=== PATIENT | female | born 1970 | race Caucasian/White ===

== ENCOUNTER → 2020-01-27 11:05 | Outpatient (BNVA) | payer MEDICARE, MEDICAID, SELFPAY | PROVIDERS: Family Provider Nurse Practitioner Family; PCP Nurse Practitioner Family; Visit Provider Specialist | DX: G43.909 Migraine, unspecified, not intractable, without status migrainosus (principal); G62.9 Polyneuropathy, unspecified; M79.7 Fibromyalgia | CPT/HCPCS: 99214 ==

== ENCOUNTER → 2020-01-28 10:58 | Outpatient (BNVA) | payer MEDICARE, MEDICAID, SELFPAY | PROVIDERS: Family Provider Nurse Practitioner Family; PCP Nurse Practitioner Family; Visit Provider Nurse Practitioner Family | DX: D50.9 Iron deficiency anemia, unspecified (principal); R20.0 Anesthesia of skin; R20.2 Paresthesia of skin | CPT/HCPCS: 80053; 82728; 84443; 85025 ==

== ENCOUNTER → 2020-02-24 08:44 | Outpatient (BNVA) | payer MEDICARE, MEDICAID, SELFPAY | PROVIDERS: Family Provider Nurse Practitioner Family; PCP Nurse Practitioner Family; Referring Provider Specialist; Visit Provider Specialist | DX: M25.561 Pain in right knee (principal) | CPT/HCPCS: 73560; 73565 ==

== ENCOUNTER 2020-03-03 09:10 | Outpatient (CLI) | payer MEDICARE, MEDICAID, SELFPAY ==
--- NOTE | 2020-03-03 09:15 | FL_ITS ---
WS: [id number] UPPER GI WITH AIR TECHNICAL: FLUOROSCOPY TIME: 3.8 minutes CLINICAL INFORMATION: K21.9 Gastro-esophageal reflux disease without esophagitis COMPARISON: None. FINDINGS: Swallowing: Normal. Esophagus: Mild/moderate esophageal dysmotility with delayed emptying. Reflux esophagitis distal esop hagus. Gastroesophageal reflux: Small hiatal hernia with reflux visualized into the mid and distal esophagus . Stomach: Double contrast stomach is normal in appearance. Small hiatal hernia. Duodenum: Normal. Other findings: Cholecystectomy clips. FL/FL upper GI w air* [id number] IMPRESSION: 1. Small hiatal hernia with reflux visualized into the mid and distal esophagu s in the upright and supine positions. 2. Mild to moderate esophageal dysmotility with delayed emptying and evidence of reflux esophagitis distal esophagus. 3. Stomach and duodenum are normal.
== END 2020-03-03 09:11 | disposition home or self-care (01) ==
PROVIDERS: PCP Nurse Practitioner Family; Visit Provider Surgery
DX: K21.9 Gastro-esophageal reflux disease without esophagitis (principal); K44.9 Diaphragmatic hernia without obstruction or gangrene
CPT/HCPCS: 74246

== ENCOUNTER → 2020-07-11 09:33 | Outpatient (BNVA) | payer MEDICARE, MEDICAID, SELFPAY | PROVIDERS: PCP Nurse Practitioner Family; Visit Provider Nurse Practitioner Family | DX: N93.9 Abnormal uterine and vaginal bleeding, unspecified (principal); N92.0 Excessive and frequent menstruation with regular cycle; E66.01 Morbid (severe) obesity due to excess calories; Z68.43 Body mass index [BMI] 50.0-59.9, adult; I10 Essential (primary) hypertension; Z76.89 Persons encountering health services in other specified circumstances | CPT/HCPCS: 85025 ==

== ENCOUNTER → 2020-07-13 08:59 | Outpatient (BNVA) | payer MEDICARE, MEDICAID, SELFPAY | PROVIDERS: PCP Nurse Practitioner Family; Visit Provider Surgery | DX: Z01.812 Encounter for preprocedural laboratory examination (principal); K21.9 Gastro-esophageal reflux disease without esophagitis; Z12.11 Encounter for screening for malignant neoplasm of colon | CPT/HCPCS: 87635 ==

== ENCOUNTER 2020-07-18 07:02 | Day surgery (SDC) | payer MEDICARE, MEDICAID, SELFPAY ==
[2020-07-14 13:58] VITALS: BMI 58.4
[2020-07-18] VITALS (11 sets, daily range): BP systolic 70–115; BP diastolic 37–80; PULSE 80–118; RESP 15–24; TEMP 36.2–36.3; O2SAT 93–100
--- NOTE | 2020-07-18 07:33 | W.PM.OPSUD ---
Surgery/Procedure H&P Update DATE OF PROCEDURE: July 18, 2020 DATE H&P PERFORMED: 06/27/20 H&P UPDATE INFORMATION: I have reviewed H&P completed within last 30 days, I have examined patient prior to procedure and No changes to prior documentation PREOP DIAGNOSIS: GERD associated with obesity and screening colonoscopy PRIMARY INDICATION FOR PROCEDURE: The same PLANNED PROCEDURE: Operation Date: 07/18/20 08:00 Proposed Procedures p EGD [id number] k21.9 z12.11(Not Applicable) - Tone Waller MD s Colonoscopy(Not Applicable) - Tone Waller MD
--- NOTE | 2020-07-18 07:36 | ANES.PREANE2 ---
Pre-Anesthetic Assessment Pre-Anesthetic Assessment: Height/Weight: Height 1.68 m Weight 164.2 kg Temp Pulse Resp BP Pulse Ox 97.3 F L 96 16 115/80 97 07/18/20 07:19 07/18/20 07:19 07/18/20 07:19 07/18/20 07:19 07/18/20 07:19 Preop Diagnosis: GERD associated with obesity and screening colonoscopy Proposed Procedure: Operation Date: 07/18/20 08:00 Proposed Procedures p EGD [id number] k21.9 z12.11(Not Applicable) - Tone Waller MD s Colonoscopy(Not Applicable) - Tone Waller MD Was Beta Isabel taken within 24 hours: N/A Last intake: Intake Last Liquid Date 07/17/20 Last Liquid Time 19:00 Last Solid Date 07/17/20 Last Solid Time 12:00 Social: Social History: No alcohol and No tobacco Exam: Pre-Anes Outpt Exam: alert, oriented x 3, clear to auscultation bilaterally and regular rate & rhythm Airway: Submandibular: WNL Cervical ROM: WNL MP: 2 Dentition: Full CV/HEM: CV/HEM: Anemia and HTN GI: GI: GERD Metabolic: Metabolic: Morbid obesity Neuropsych: Neuropsych: Neuropathy Anesthetic Plan: ASA status: 3 Anesthesia: MAC Risk of > 500 ml blood loss (7ml/kg in children): No PFSH Anesthesia PFSH: Medical History (Updated 07/11/20 @ 16:18 by Doreen Maher NP) Fibromyalgia Surgical History H/O tubal ligation History of appendectomy History of cholecystectomy Family History Other CAD (coronary artery disease) Cancer Stroke Social History Smoking and tobacco status: never smoked Alcohol intake: never Adopted: No Caregiver/support person: Yes Lives independently: Yes Household members: spouse Housing: House Marital status: service: No Current occupational status: disabled Current occupational exposures/hazards: No Pets and animals: No History of recent travel: No Sexually active: Yes Current gender identity: Female Delaney/Mandaen: [employer] [place] Data Anesthesia Cardiac Studies: No Data to Display
[2020-07-18] MEDS: sodium chloride 0.9% 1,000 ML 30 ML IV (07:46)
--- NOTE | 2020-07-18 09:42 | ANE.PACU2 ---
Inpatient post-anesthesia follow up: Airway intact: Yes Vital signs: Temperature 97.2 F Pulse Rate 90 Respiratory Rate 20 Blood Pressure 107/73 Pulse Oximetry 99 Oxygen Delivery Me thod Room Air Oxygen Flow Rate 2 Fraction of Inspir ed Oxygen Hydration adequate: Yes Nausea and vomiting: No Pain level: 1 Mental status: Baseline
[2020-07-19 08:05] LABS: H. Pylori / CLO Test Negative
== END 2020-07-18 09:40 | disposition home or self-care (01) ==
PROVIDERS: PCP Nurse Practitioner Family; Visit Provider Surgery
PROC: 0DJ08ZZ Inspection of Upper Intestinal Tract, Via Natural or Artificial Opening Endoscopic (ICD-10-PCS; CPT 43235; principal; 2020-07-18 08:00)
PROC: 0DJD8ZZ Inspection of Lower Intestinal Tract, Via Natural or Artificial Opening Endoscopic (ICD-10-PCS; CPT 45378; 2020-07-18 08:00)
DX: Z12.11 Encounter for screening for malignant neoplasm of colon (principal); K21.9 Gastro-esophageal reflux disease without esophagitis; M79.7 Fibromyalgia; K57.30 Diverticulosis of large intestine without perforation or abscess without bleeding; K29.70 Gastritis, unspecified, without bleeding; I10 Essential (primary) hypertension; E66.01 Morbid (severe) obesity due to excess calories; Z68.43 Body mass index [BMI] 50.0-59.9, adult; Z82.49 Family history of ischemic heart disease and other diseases of the circulatory system; Z82.3 Family history of stroke
CPT/HCPCS: 12345; 43239; 87077; G0121; J2370; J2704; J3490; J7030

== ENCOUNTER → 2020-07-22 11:17 | Outpatient (BNVA) | payer MEDICARE, MEDICAID, SELFPAY | PROVIDERS: PCP Nurse Practitioner Family; Visit Provider Nurse Practitioner Family | DX: N92.0 Excessive and frequent menstruation with regular cycle (principal) | CPT/HCPCS: 85025 ==

== ENCOUNTER → 2020-08-03 10:25 | Outpatient (BNVA) | payer MEDICARE, MEDICAID, SELFPAY | PROVIDERS: PCP Nurse Practitioner Family; Visit Provider Specialist | DX: G43.909 Migraine, unspecified, not intractable, without status migrainosus (principal); G62.9 Polyneuropathy, unspecified; M79.7 Fibromyalgia | CPT/HCPCS: G0463 ==

== ENCOUNTER → 2020-09-26 08:58 | Outpatient (BNVA) | payer MEDICARE, MEDICAID, SELFPAY | PROVIDERS: PCP Nurse Practitioner Family; Visit Provider Specialist | DX: M79.7 Fibromyalgia (principal); G62.9 Polyneuropathy, unspecified; G43.711 Chronic migraine without aura, intractable, with status migrainosus | CPT/HCPCS: 99214 ==

== ENCOUNTER → 2021-03-16 09:49 | Outpatient (BNVA) | payer MEDICARE, MEDICAID, SELFPAY | PROVIDERS: PCP Nurse Practitioner Family; Visit Provider Specialist | DX: G43.711 Chronic migraine without aura, intractable, with status migrainosus (principal); E66.01 Morbid (severe) obesity due to excess calories; Z68.44 Body mass index [BMI] 60.0-69.9, adult; G62.9 Polyneuropathy, unspecified | CPT/HCPCS: 99214 ==

== ENCOUNTER → 2021-06-13 10:17 | Outpatient (BNVA) | payer MEDICARE, MEDICAID, SELFPAY | PROVIDERS: PCP Nurse Practitioner Family; Visit Provider Specialist | DX: G43.711 Chronic migraine without aura, intractable, with status migrainosus (principal); M79.7 Fibromyalgia; Z72.820 Sleep deprivation | CPT/HCPCS: 99213; 99214 ==

== ENCOUNTER → 2021-06-16 09:02 | Outpatient (BNVA) | payer MEDICARE, MEDICAID, SELFPAY | PROVIDERS: PCP Nurse Practitioner Family; Visit Provider Nurse Practitioner Family | DX: D50.9 Iron deficiency anemia, unspecified (principal); I10 Essential (primary) hypertension; E55.9 Vitamin D deficiency, unspecified | CPT/HCPCS: 80053; 80061; 82306; 82728; 83550; 84443; 85025 ==

== ENCOUNTER 2021-07-17 20:00 | Outpatient (CLI) | payer MEDICARE, MEDICAID, SELFPAY | END 2021-07-17 20:01 | disposition home or self-care (01) | LOC: SLEEP 07-18 08:57 | PROVIDERS: PCP Nurse Practitioner Family; Visit Provider Nurse Practitioner Family | DX: G47.30 Sleep apnea, unspecified (principal) | CPT/HCPCS: 95811 ==

== ENCOUNTER 2021-09-06 20:00 | Outpatient (CLI) | payer MEDICARE, MEDICAID, SELFPAY | END 2021-09-06 20:01 | disposition home or self-care (01) | LOC: SLEEP 09-07 05:41 | PROVIDERS: PCP Nurse Practitioner Family; Visit Provider Nurse Practitioner Family | DX: G47.30 Sleep apnea, unspecified (principal); G47.10 Hypersomnia, unspecified | CPT/HCPCS: 95811 ==

== ENCOUNTER → 2021-11-13 11:00 | Outpatient (BNVA) | payer MEDICARE, MEDICAID, SELFPAY | PROVIDERS: PCP Nurse Practitioner Family; Visit Provider Specialist | DX: G43.711 Chronic migraine without aura, intractable, with status migrainosus (principal) | CPT/HCPCS: 99213 ==

== ENCOUNTER → 2022-05-28 09:16 | Outpatient (BNVA) | payer MEDICARE, MEDICAID, SELFPAY | PROVIDERS: PCP Nurse Practitioner Family; Visit Provider Nurse Practitioner Family | DX: M54.9 Dorsalgia, unspecified (principal); R35.0 Frequency of micturition; I10 Essential (primary) hypertension; D50.9 Iron deficiency anemia, unspecified; N39.0 Urinary tract infection, site not specified; R31.9 Hematuria, unspecified; Z68.42 Body mass index [BMI] 45.0-49.9, adult | CPT/HCPCS: 80053; 80061; 81003; 85025 ==

== ENCOUNTER 2022-07-23 06:36 | Outpatient (CLI) | payer MEDICARE, MEDICAID, SELFPAY | END 2022-07-23 06:37 | disposition home or self-care (01) | LOC: SLEEP 07-24 06:37 | PROVIDERS: PCP Nurse Practitioner Family; Visit Provider Nurse Practitioner Family | DX: G47.30 Sleep apnea, unspecified (principal) | CPT/HCPCS: 95811 ==

== ENCOUNTER → 2022-07-30 09:34 | Outpatient (BNVA) | payer MEDICARE, MEDICAID, SELFPAY | PROVIDERS: PCP Nurse Practitioner Family; Referring Provider Nurse Practitioner Family; Visit Provider Specialist | DX: M17.0 Bilateral primary osteoarthritis of knee (principal); E66.9 Obesity, unspecified; Z68.41 Body mass index [BMI] 40.0-44.9, adult | CPT/HCPCS: 73560; 73565; 99214 ==

== ENCOUNTER → 2022-08-30 10:17 | Outpatient (BNVA) | payer MEDICARE, MEDICAID, SELFPAY | PROVIDERS: PCP Nurse Practitioner Family; Visit Provider Nurse Practitioner Family | DX: K91.2 Postsurgical malabsorption, not elsewhere classified (principal); Z98.84 Bariatric surgery status | CPT/HCPCS: 80053; 80061; 82306; 82310; 82607; 82728; 82746; 83540; 83735; 83970; 84100; 85025 ==

== ENCOUNTER → 2023-01-25 09:03 | Outpatient (BNVA) | payer MEDICARE, MEDICAID, SELFPAY | PROVIDERS: PCP Nurse Practitioner Family; Visit Provider Specialist | DX: G43.711 Chronic migraine without aura, intractable, with status migrainosus (principal) | CPT/HCPCS: 99213 ==

== ENCOUNTER → 2024-01-22 09:41 | Outpatient (BNVA) | payer MEDICARE, MEDICAID, SELFPAY | PROVIDERS: PCP Nurse Practitioner Family; Visit Provider Specialist | DX: G43.711 Chronic migraine without aura, intractable, with status migrainosus (principal) | CPT/HCPCS: 99213 ==

== ENCOUNTER → 2024-01-27 14:00 | Outpatient (BNVA) | payer MEDICARE, MEDICAID, SELFPAY | PROVIDERS: PCP Nurse Practitioner Family; Visit Provider Nurse Practitioner Family | DX: I10 Essential (primary) hypertension (principal); E55.9 Vitamin D deficiency, unspecified | CPT/HCPCS: 80053; 80061; 82306 ==

== ENCOUNTER 2024-01-30 13:04 | Outpatient (CLI) | payer MEDICARE, MEDICAID, SELFPAY ==
--- NOTE | 2024-01-30 13:14 | XR_ITS ---
WS: [email or web address] Right foot, 3 views, 01/30/2024 Clinical Data: M79.671 - Pain in right foot Comparison: None. Findings: No fractures or dislocations are seen. No bone destruction or erosion is noted. The soft tissues are normal. There is minimal osteoarthritis between the base of the right first metatarsal and the firs t cuneiform. There is a plantar spur and an Achilles spur. XR/XR foot RT min 3V* [id number] Impression: Minimal osteoarthritis between the base of the right first metatarsal and first cuneiform.
--- NOTE | 2024-01-30 13:14 | XR_ITS ---
WS: [email or web address] Left foot, 3 views, 01/30/2024 Clinical Data: M79.672 - Pain in left foot Comparison: None. Findings: No fractures or dislocations are seen. No bone destruction or erosion is noted. The joint spaces and soft tissues are normal. There is a plantar spur and an Achilles spur. XR/XR foot LT min 3V* [id number] Impression: Negative left foot.
--- NOTE | 2024-01-30 13:14 | XR_ITS ---
WS: [id number] Left shoulder, 3 views, 01/30/2024 Clinical Data: M25.512 - Pain in left shoulder Comparison: None. Findings: No fractures or dislocations are seen. The AC joint is normal. The adjacent left clavicle, left scapu la and ribs are normal. The soft tissues are unremarkable. XR/XR shoulder LT min 2V* [id number] Impression: Negative left shoulder.
--- NOTE | 2024-01-30 13:14 | XR_ITS ---
WS: [email or web address] Calcaneus, 2 views, 01/30/2024 Clinical Data: M79.671 - Pain in right foot Comparison: None. Findings: There are calcaneus is intact with no fractures. There is an Achilles spur and a small plantar spur. No bone destruction or erosion is seen. The soft tissues are not remarkable. XR/XR calcaneus RT min 2V 12515 Impression: Negative right calcaneus.
== END 2024-01-30 13:05 | disposition home or self-care (01) ==
LOC: RAD 13:08
PROVIDERS: PCP Nurse Practitioner Family; Visit Provider Nurse Practitioner Family
DX: M77.32 Calcaneal spur, left foot (principal); M77.31 Calcaneal spur, right foot; M79.671 Pain in right foot; M25.512 Pain in left shoulder; G89.29 Other chronic pain; M79.672 Pain in left foot
CPT/HCPCS: 73030; 73630; 73650

== ENCOUNTER → 2024-04-06 10:20 | Outpatient (BNVA) | payer MEDICARE, SELFPAY | PROVIDERS: PCP Nurse Practitioner Family; Visit Provider Podiatrist Foot & Ankle Surgery | DX: M21.40 Flat foot [pes planus] (acquired), unspecified foot (principal); M19.071 Primary osteoarthritis, right ankle and foot; M19.072 Primary osteoarthritis, left ankle and foot; I10 Essential (primary) hypertension | CPT/HCPCS: 99203 ==

== ENCOUNTER → 2025-01-07 10:25 | Outpatient (BNVA) | payer MEDICARE, SELFPAY | PROVIDERS: PCP Nurse Practitioner Family; Visit Provider Specialist | DX: G43.711 Chronic migraine without aura, intractable, with status migrainosus (principal) | CPT/HCPCS: 99213 ==

== ENCOUNTER → 2025-01-26 09:00 | Outpatient (BNVA) | payer MEDICARE, SELFPAY | PROVIDERS: PCP Nurse Practitioner Family; Visit Provider Nurse Practitioner Family | DX: D50.9 Iron deficiency anemia, unspecified (principal); E66.01 Morbid (severe) obesity due to excess calories; E55.9 Vitamin D deficiency, unspecified; R03.0 Elevated blood-pressure reading, without diagnosis of hypertension | CPT/HCPCS: 80053; 80061; 82306; 82728; 83550; 85025 ==

== ENCOUNTER → 2025-02-01 10:04 | Outpatient (BNVA) | payer MEDICARE, SELFPAY | PROVIDERS: PCP Nurse Practitioner Family; Referring Provider Nurse Practitioner Family; Visit Provider Student in an Organized Health Care Education/Training Program | DX: Z12.11 Encounter for screening for malignant neoplasm of colon (principal) | CPT/HCPCS: 99024; 99204 ==

== ENCOUNTER 2025-03-09 10:35 | Day surgery (SDC) | payer MEDICARE, SELFPAY ==
[2025-03-09 10:54] VITALS: BP 126/80; PULSE 71; RESP 16; TEMP 36.5; O2SAT 98
[2025-03-09 10:55] VITALS: BMI 42.3
--- NOTE | 2025-03-09 11:13 | P.HP_ITS ---
Same Day Surgery H&P Indication for Procedure/HPI DATE OF PROCEDURE: March 09, 2025 CHIEF COMPLAINT/INDICATIONFOR SURGICAL PROCEDURE: screening colonoscopy PREOP DIAGNOSIS: screening colonoscopy PLANNED PROCEDURE: Operation Date: 03/09/25 12:00 Proposed Procedures p Colonoscopy [id number] G0105 Z12.11(Not Applicable) - Robert Prater MD Medications/Allergies* Home Medications ?Medication ?Instructions ?Recorded ?Confirmed ?Type omeprazole 20 mg capsule,delayed 20 mg PO DAILY 03/09/25 History release Allergies/Adverse Reactions Allergy/AdvReac Type Severity Reaction Status Date / Time No Known Allergies Allergy Verified 03/09/25 10:51 Current Medications: Generic Name Dose Route Start Last Admin Trade Name Freq PRN Reason Stop Dose Admin Sodium Chloride 1,000 mls @ 15 mls/hr 03/09/25 10:54 03/09/25 11:03 Sodium Chloride 0.9% IV 03/10/25 10:53 15 mls/hr .Q24H PRN Administration COLONOSCOPY FLUIDS Pertinent History/Comorbid Conditions* Medical History (Updated 01/28/25 @ 11:24 by Doreen Maher NP) Diverticulosis Fibromyalgia Surgical History (Updated 03/23/22 @ 11:29 by Doreen Maher NP) History of cholecystectomy H/O tubal ligation History of appendectomy Family History (Updated 01/27/20 @ 11:38 by Sydnee White RN) CAD (coronary artery disease) Cancer Stroke Social History Smoking and tobacco/nicotine status: never used tobacco/nicotine Alcohol intake: never Substance/Drug Use: never Adopted: No Caregiver/support person: Yes Lives independently: Yes Household members: spouse Housing: House Marital status: service: No Current occupational status: disabled Current occupational exposures/hazards: No Pets and animals: No Sexually active: Yes Do you think of yourself as: Straight/Heterosexual Current gender identity: Female Delaney/Adventism: [employer]ond[employer] of [place] Pertinent Exam Findings alert, oriented x 3, clear to auscultation bilaterally, regular rate & rhythm and procedure specific exam findings abdomen soft, nt, nd Recommendations Risks and benefits of procedure reviewed and Patient/family agree to proceed Surgery/Procedure today Coding Level of Care Code Acute Code for Chg Fwd
--- NOTE | 2025-03-09 11:16 | ANES.PREANE2 ---
Pre-Anesthetic Assessment Height/Weight: Height 1.65 m Weight 115.212 kg Temp Pulse Resp BP Pulse Ox O2 Del Method 97.7 F 71 16 126/80 98 Room Air 03/09/25 10:54 03/09/25 10:54 03/09/25 10:54 03/09/25 10:54 03/09/25 10:54 03/09/25 10:54 Preop Diagnosis: screening colonoscopy Operation Date: 03/09/25 12:00 Proposed Procedures p Colonoscopy [id number] G0105 Z12.11(Not Applicable) - Robert Prater MD Familial anesthetic complications: none Was Clonidine taken within 24 hours: N/A Last intake: Intake Last Liquid Date 03/08/25 Last Liquid Time 21:30 Last Solid Date 03/07/25 Last Solid Time 19:00 Social No alcohol and No tobacco Exam alert, oriented x 3, clear to auscultation bilaterally and regular rate & rhythm Airway Submandibular: within normal limits Cervical ROM: within normal limits Mallampati: Class II Dentition: other Comments: Comments: missing one tooth History/ROS No significant history except as noted and No significant complaints Pulmonary None reported CV/HEM None reported None reported Hepatic None reported GI Gastroesophageal Reflux Disease Metabolic None reported Musc/skel None reported Neuropsych None reported Anesthetic Plan ASA status: 3 Anesthesia: MAC Medications/Allergies Home Medications ?Medication ?Instructions ?Recorded ?Confirmed ?Last Taken ?Type galcanezumab-gnlm 120 mg/mL 240 mg (2 mL) SUBCUT ONCE #2 mL 01/07/25 03/09/25 2 Weeks Ago Rx subcutaneous pen injector ~02/19/25 (Emgality Pen) fluticasone propionate 50 2 spray intranasal DAILY #16 grams 01/22/25 03/09/25 1 Month Ago Rx mcg/actuation nasal ~02/02/25 spray,suspension (Flonase Allergy Relief) calcium 500 mg (as citrate)-vit D3 1 tab PO TIDWMEAL #270 tabs 02/01/25 03/09/25 03/02/25 Rx 12.5 mcg (500 unit) chewable tablet tirzepatide (weight loss) 5 mg/0.5 5 mg (0.5 mL) SUBCUT .weekly #2 mL 02/21/25 03/09/25 02/23/25 Rx mL subcutaneous pen injector (Zepbound) lidocaine 5 % topical patch 1 patch topical DAILY #90 patches 03/05/25 03/09/25 03/02/25 Rx omeprazole 20 mg capsule,delayed 20 mg PO DAILY 03/05/25 03/09/25 03/02/25 History release Allergies Allergy/AdvReac Type Severity Reaction Status Date / Time No Known Allergies Allergy Verified 03/09/25 10:51 Current Medications Generic Name Dose Route Start Last Admin Trade Name Freq PRN Reason Stop Dose Admin Sodium Chloride 1,000 mls @ 15 mls/hr 03/09/25 10:54 03/09/25 11:03 Sodium Chloride 0.9% IV 03/10/25 10:53 15 mls/hr .Q24H PRN Administration COLONOSCOPY FLUIDS PFSH Anesthesia Medical History Diverticulosis Fibromyalgia Surgical History History of cholecystectomy H/O tubal ligation History of appendectomy Family History Other CAD (coronary artery disease) Cancer Stroke Social History Smoking and tobacco/nicotine status: never used tobacco/nicotine Alcohol intake: never Substance/Drug Use: never Adopted: No Caregiver/support person: Yes Lives independently: Yes Household members: spouse Housing: House Marital status: service: No Current occupational status: disabled Current occupational exposures/hazards: No Pets and animals: No Sexually active: Yes Do you think of yourself as: Straight/Heterosexual Current gender identity: Female Delaney/Latter-Day: 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
[2025-03-09 11:45] VITALS: BP 108/75; PULSE 76; RESP 18; TEMP 36.1; O2SAT 96
[2025-03-09 12:06] VITALS: BP 98/71; PULSE 63; RESP 16; O2SAT 97
--- NOTE | 2025-03-09 12:20 | ANE.PACU2 ---
Inpatient post-anesthesia follow up: Airway intact: Yes Vital signs: Temperature 97 F Pulse Rate 63 Respiratory Rate 16 Blood Pressure 98/71 Pulse Oximetry 97 Oxygen Delivery Me thod Room Air Oxygen Flow Rate Fraction of Inspir ed Oxygen Hydration adequate: Yes Nausea and vomiting: No Pain level: 1 Mental status: Baseline
== END 2025-03-09 12:20 | disposition home or self-care (01) ==
PROVIDERS: PCP Nurse Practitioner Family; Visit Provider Student in an Organized Health Care Education/Training Program
PROC: 0DJD8ZZ Inspection of Lower Intestinal Tract, Via Natural or Artificial Opening Endoscopic (ICD-10-PCS; CPT 45378; principal; 2025-03-09 12:00)
DX: Z12.11 Encounter for screening for malignant neoplasm of colon (principal); K57.30 Diverticulosis of large intestine without perforation or abscess without bleeding; K64.4 Residual hemorrhoidal skin tags; K21.9 Gastro-esophageal reflux disease without esophagitis; M79.7 Fibromyalgia
CPT/HCPCS: G0121; J2704; J7030